=== PATIENT | male | born 1965 | race American Indian/Alaskan Native ===

== ENCOUNTER 2019-06-18 08:10 | Emergency (ER) | payer OTHER ==
[2019-06-18 08:21] VITALS: BP 126/78
--- NOTE | 2019-06-18 09:31 | XRay Report ---
CHEST 1 VIEW, 06/18/2019 9:15 AM CLINICAL INFORMATION/INDICATION: Shortness of breath. Fever. COMPARISON: None FINDINGS: SUPPORT DEVICES: None. HEART: The cardiac silhouette is normal in size. LUNGS/PLEURA: Mildly prominent interstitial markings are noted bilaterally without focal confluent co nsolidation or significant pleural effusion. ADDITIONAL FINDINGS: No additional acute findings. IMPRESSION: 1. Mild prominence of the pulmonary interstitium. This is a nonspecific finding but could suggest mil d pulmonary edema or atypical infectious process. Signer Name: Natividad Hernandez MD Signed: 06/18/2019 9:27 AM Workstation Name: [id number]
--- NOTE | 2019-06-18 09:46 | Emergency Department Report ---
ED General Adult HPI - General Chief complaint: Headache Stated complaint: WEAKNESS/ Time Seen by Provider: 06/18/19 09:44 Source: patient Mode of arrival: Ambulatory Limitations: No Limitations - History of Present Illness Initial comments: This is a 53-year-old male with a past medical history of hypertension controlled with medication who presents the ED complaining of headache poor appetite and generalized fatigue for the past week and a half. Patient states that he had fever last week which resolved last week and has not had a fever this whole week. Patient states that symptoms are not getting better. Patient does deny recent travel or recent sick contact. Patient denies cough, shortness of breath, chest pain or any other symptoms. Patient states he gets intermittent headaches and muscle aches. Patient does note that he wears glasses and thinks his glasses prescriptions were overdue. - Related Data Previous Rx's Medication Instructions Recorded Last Taken Type Azithromycin [Zithromax] 250 mg PO DAILY #6 tablet 06/18/19 Unknown Rx Allergies Allergy/AdvReac Type Severity Reaction Status Date / Time No Known Allergies Allergy Unverified 06/18/19 08:21 ED Review of Systems ROS: Stated complaint: WEAKNESS/ Other details as noted in HPI Comment: All other systems reviewed and negative ED Past Medical Hx - Past Medical History Previous Medical History?: Yes Hx Hypertension: Yes Hx CVA: Yes - Surgical History Past Surgical History?: No - Social History Smoking Status: Never Smoker Substance Use Type: None - Medications Home Medications: Home Medications Medication Instructions Recorded Confirmed Last Taken Type Azithromycin [Zithromax] 250 mg PO DAILY #6 tablet 06/18/19 Unknown Rx ED Physical Exam - General Limitations: No Limitations General appearance: alert, in no apparent distress - Head Head exam: Present: atraumatic, normocephalic - Eye Eye exam: Present: normal appearance - ENT ENT exam: Present: mucous membranes moist - Neck Neck exam: Present: normal inspection - Respiratory Respiratory exam: Present: normal lung sounds bilaterally. Absent: respiratory distress, wheezes, chest wall tenderness - Cardiovascular Cardiovascular Exam: Present: regular rate, normal rhythm. Absent: systolic murmur, diastolic murmur, rubs, gallop - GI/Abdominal GI/Abdominal exam: Present: soft, normal bowel sounds - Rectal Rectal exam: Present: deferred - Extremities Exam Extremities exam: Present: normal inspection - Back Exam Back exam: Present: normal inspection - Neurological Exam Neurological exam: Present: alert, oriented X3 - Psychiatric Psychiatric exam: Present: normal affect, normal mood - Skin Skin exam: Present: warm, dry, intact, normal color. Absent: rash ED Course Vital Signs 06/18/19 08:20 Temperature 99.5 F Pulse Rate 82 Respiratory 18 Rate Blood Pressure 126/78 O2 Sat by Pulse 96 Oximetry ED Medical Decision Making - Radiology Data Radiology results: report reviewed, image reviewed CHEST 1 VIEW, 06/18/2019 9:15 AM CLINICAL INFORMATION/INDICATION: Shortness of breath. Fever. COMPARISON: None FINDINGS: SUPPORT DEVICES: None. HEART: The cardiac silhouette is normal in size. LUNGS/PLEURA: Mildly prominent interstitial markings are noted bilaterally without focal confluent consolidation or significant pleural effusion. ADDITIONAL FINDINGS: No additional acute findings. IMPRESSION: 1. Mild prominence of the pulmonary interstitium. This is a nonspecific finding but could suggest mild pulmonary edema or atypical infectious process. Signer Name: Natividad Hernandez MD Signed: 06/18/2019 9:27 AM Workstation Name: [id number] Transcribed By: EB Dictated By: Natividad Hernandez MD Electronically Authenticated By: Natividad Hernandez MD Signed Date/Time: 06/18/19 0927 - Medical Decision Making 53-year-old male presents with intermittent headache. Patient recently had fever the past week with generalized malaise Patient had a low-grade fever in the ED is a chest x-ray was performed. Chest x-ray shows some atypical findings. I discussed this with the patient. I discussed with patient will go ahead and treat with antibiotics. I discussed with patient to watch for symptoms if he has any worsening symptoms to return to the ED immediately. At this time patient is not experiencing any cough, Discussed continue Tylenol as needed for fever and pain. Discussed increase fluids and diet intake. Discussed rest much needed. Discussed daily vitamin C for immune booster. Discussed follow-up with pCP in 3-5 days. Joe verbally states she understands and will comply the following instructions and follow-up Vital signs stable. Patient is in no acute distress Critical care attestation.: If time is entered above; I have spent that time in minutes in the direct care of this critically ill patient, excluding procedure time. ED Disposition Clinical Impression: Headache Disposition: DC-01 TO HOME OR SELFCARE Is pt being admited?: No Does the pt Need Aspirin: No Condition: Stable Instructions: Upper Respiratory Infection (ED), Acute Headache (ED), Viral Syndrome (ED) Additional Instructions: Make sure to follow up with the primary care physician as discussed. Take all your medications as you've been prescribed. If you have any worsening symptoms or develop new symptoms please return to ED immediately. Prescriptions: Azithromycin [Zithromax] 250 mg PO DAILY #6 tablet Referrals: DIONICIO FISHMAN MD [Primary Care Provider] - 3-5 Days Forms: Accompanied Note, Work/School Release Form(ED) Time of Disposition: 10:41
== END 2019-06-18 11:11 | disposition home or self-care (01) ==
LOC: ED 08:10
DX: R51 Headache (principal); I10 Essential (primary) hypertension; Z86.73 Personal history of transient ischemic attack (TIA), and cerebral infarction without residual deficits; Z79.899 Other long term (current) drug therapy
CPT/HCPCS: 71046; 99283

== ENCOUNTER 2021-01-05 11:49 | Emergency (ER) | payer MEDICARE, OTHER ==
[2021-01-05 12:06] VITALS: BP 149/93
--- NOTE | 2021-01-05 12:44 | Emergency Department Report ---
ED General Adult HPI - General Chief complaint: Pain General Stated complaint: SORENESS LFT AND RIGHT SIDE OF ABD Time Seen by Provider: 01/05/21 12:16 Source: patient Mode of arrival: Ambulatory Limitations: No Limitations - History of Present Illness Initial comments: Patient is a 55-year-old male presents emergency room complaints of soreness to his bilateral abdomen that began a week and a half ago. He denies any fall or injury. He states he is having normal bowel movements. He denies any fever, hematochezia, melena, hematemesis, nausea, vomiting, diarrhea, urinary symptoms, hematuria, urinary retention, difficulty urinating, weight loss. Patient states he had a colonoscopy 5 years ago and reports it was normal. Patient states that he went to his primary care doctor Dr. Fishman on 01/01/2021 and was advised that it was likely a muscle strain and he was given GI follow-up. He states he presents today due to continued soreness. He states that he feels the pain whenever he first starts to stand up. Past medical history of hypertension and CVA. No allergies to medications. - Related Data Previous Rx's Medication Instructions Recorded Last Taken Type Azithromycin [Zithromax] 250 mg PO DAILY #6 tablet 06/18/19 Unknown Rx Allergies Allergy/AdvReac Type Severity Reaction Status Date / Time No Known Allergies Allergy Unverified 06/18/19 08:21 ED Review of Systems ROS: Stated complaint: SORENESS LFT AND RIGHT SIDE OF ABD Other details as noted in HPI Comment: All other systems reviewed and negative ED Past Medical Hx - Past Medical History Previous Medical History?: Yes Hx Hypertension: Yes Hx CVA: Yes - Surgical History Past Surgical History?: No - Social History Smoking Status: Never Smoker Substance Use Type: None - Medications Home Medications: Home Medications Medication Instructions Recorded Confirmed Last Taken Type Azithromycin [Zithromax] 250 mg PO DAILY #6 tablet 06/18/19 Unknown Rx ED Physical Exam - General Limitations: No Limitations General appearance: alert, in no apparent distress - Head Head exam: Present: atraumatic, normocephalic - Eye Eye exam: Present: normal appearance - ENT ENT exam: Present: mucous membranes moist - Neck Neck exam: Present: normal inspection, full ROM. Absent: tenderness, meningismus - Respiratory Respiratory exam: Present: normal lung sounds bilaterally. Absent: respiratory distress, wheezes, rales, rhonchi, stridor, chest wall tenderness, accessory m uscle use, decreased breath sounds, prolonged expiratory - Cardiovascular Cardiovascular Exam: Present: regular rate, normal rhythm, normal heart sounds. Absent: systolic murmur, diastolic murmur, rubs, gallop - GI/Abdominal GI/Abdominal exam: Present: soft, normal bowel sounds. Absent: distended, tenderness, guarding, rebound, rigid, pulsatile mass, hernia - Back Exam Back exam: Present: normal inspection, full ROM. Absent: CVA tenderness (R), CVA tenderness (L), paraspinal tenderness, vertebral tenderness - Neurological Exam Neurological exam: Present: alert, oriented X3 - Psychiatric Psychiatric exam: Present: normal affect, normal mood - Skin Skin exam: Present: warm, dry, intact ED Course Vital Signs 01/05/21 01/05/21 12:02 12:44 Temperature 98 F Pulse Rate 71 Respiratory 16 Rate Blood Pressure 149/93 [Left] O2 Sat by Pulse 97 98 Oximetry ED Medical Decision Making - Lab Data Result diagrams: 01/05/21 12:33 01/05/21 12:33 Lab Results 01/05/21 01/05/21 01/05/21 Range/Units 12:33 12:33 Unknown WBC 4.5 (4.5-11.0) K/mm3 RBC 4.73 (3.65-5.03) M/mm3 Hgb 14.7 (11.8-15.2) gm/dl Hct 42.0 (35.5-45.6) % MCV 89 (84-94) fl MCH 31 (28-32) pg MCHC 35 H (32-34) % RDW 13.1 L (13.2-15.2) % Plt Count 200 (140-440) K/mm3 Lymph % (Auto) 37.4 H (13.4-35.0) % [place] % (Auto) 8.2 H (0.0-7.3) % Eos % (Auto) 4.1 (0.0-4.3) % Baso % (Auto) 2.7 H (0.0-1.8) % Lymph # (Auto) 1.7 (1.2-5.4) K/mm3 [place] # (Auto) 0.4 (0.0-0.8) K/mm3 Eos # (Auto) 0.2 (0.0-0.4) K/mm3 Baso # (Auto) 0.1 (0.0-0.1) K/mm3 Seg Neutrophils % 47.6 (40.0-70.0) % Seg Neutrophils # 2.2 (1.8-7.7) K/mm3 Sodium 141 (137-145) mmol/L Potassium 3.8 (3.6-5.0) mmol/L Chloride 106.3 (98-107) mmol/L Carbon Dioxide 23 (22-30) mmol/L Anion Gap 16 mmol/L BUN 12 (9-20) mg/dL Creatinine 1.0 (0.8-1.3) mg/dL Estimated GFR > 60 ml/min BUN/Creatinine Ratio 12 % Glucose 122 H (75-100) mg/dL Calcium 9.8 (8.4-10.2) mg/dL Total Bilirubin 0.40 (0.1-1.2) mg/dL AST 19 (5-40) units/L ALT 24 (7-56) units/L Alkaline Phosphatase 78 (35-129) units/L Total Protein 7.3 (6.3-8.2) g/dL Albumin 4.4 (3.9-5) g/dL Albumin/Globulin Ratio 1.5 % Lipase 10 L (13-60) units/L Urine Color Yellow (Yellow) Urine Turbidity Clear (Clear) Urine pH 6.0 (5.0-7.0) Ur Specific [place] 1.015 (1.003-1.030) Urine Protein 30 mg/dl (Negative) mg/dL Urine Glucose (UA) Neg (Negative) mg/dL Urine Ketones Neg (Negative) mg/dL Urine Blood Neg (Negative) Urine Nitrite Neg (Negative) Urine Bilirubin Neg (Negative) Urine Urobilinogen < 2.0 (<2.0) mg/dL Ur Leukocyte Esterase Neg (Negative) Urine WBC (Auto) < 1.0 (0.0-6.0) /HPF Urine RBC (Auto) 1.0 (0.0-6.0) /HPF U Epithel Cells (Auto) < 1.0 (0-13.0) /HPF - Medical Decision Making Patient is a 55-year-old male presents emergency room complaints of soreness to his bilateral abdomen that began a week and a half ago. He denies any fall or injury. He states he is having normal bowel movements. He denies any fever, hematochezia, melena, hematemesis, nausea, vomiting, diarrhea, urinary symptoms, hematuria, urinary retention, difficulty urinating, weight loss. Patient states he had a colonoscopy 5 years ago and reports it was normal. Patient states that he went to his primary care doctor Dr. Fishman on 01/01/2021 and was advised that it was likely a muscle strain and he was given GI follow-up. He states he presents today due to continued soreness. He states that he feels the pain whenever he first starts to stand up. Past medical history of hypertension and CVA. No allergies to medications. Vitals are stable. No abdominal tenderness on exam, no guarding, no rebound, no rigidity, no perito margarito signs. Labs are stable. UA is within normal limits. Symptoms could be related to abdominal wall muscle strain as his pain is worse with movement. Do not suspect acute emergent intra-abdominal pathology at this time. Discussed the importance of primary care follow-up for reexamination. Discussed outpatient GI follow-up. Discussed return precautions. Advised patient May alternate Tylenol or ibuprofen as needed for pain. may use ice pack, heating pad, Epsom salt bath. Follow-up with a primary care doctor. Follow-up with a GI doctor. Return to emergency room for any new or worsening symptoms. Critical care attestation.: If time is entered above; I have spent that time in minutes in the direct care of this critically ill patient, excluding procedure time. ED Disposition Clinical Impression: Abdominal discomfort Disposition: 01 HOME / SELF CARE / HOMELESS Is pt being admited?: No Does the pt Need Aspirin: No Condition: Stable Instructions: Abdominal Pain, Adult Additional Instructions: May alternate Tylenol or ibuprofen as needed for pain. may use ice pack, heating pad, Epsom salt bath. Follow-up with a primary care doctor. Follow-up with a GI doctor. Return to emergency room for any new or worsening symptoms. Referrals: [facility] [Provider Group] - 3-5 Days DIONICIO FISHMAN MD [Primary Care Provider] - 3-5 Days Time of Disposition: 13:40 Print Language: [place]
[2021-01-05 12:50] LABS: Bilirubin,Urine NEG (Negative); Blood,Urine NEG (Negative); Color,Urine Yellow (Yellow); Urobilinogen,Urine < 2.0 mg/dL (<2.0); WBC,Urine < 1.0 /HPF (0.0-6.0)
[2021-01-05 13:07] LABS: Basophils # (Auto) 0.1 K/mm3 (0.0-0.1); Basophils % (Auto) 2.7 % (0.0-1.8); Eosinophils # (Auto) 0.2 K/mm3 (0.0-0.4); Eosinophils % (Auto) 4.1 % (0.0-4.3); Hemoglobin 14.7 gm/dl (11.8-15.2); Lymphocytes # (Auto) 1.7 K/mm3 (1.2-5.4); Lymphocytes % (Auto) 37.4 % (13.4-35.0); Mean Corpuscular HGB Conc 35 % (32-34); Mean Corpuscular Volume 89 fl (84-94); Monocytes # (Auto) 0.4 K/mm3 (0.0-0.8); Monocytes % (Auto) 8.2 % (0.0-7.3); Platelet Count 200 K/mm3 (140-440); Red Blood Count 4.73 M/mm3 (3.65-5.03); Red Cell Distribution Width 13.1 % (13.2-15.2)
[2021-01-05 13:27] LABS: Alanine Aminotransferase 24 units/L (7-56); Albumin 4.4 g/dL (3.9-5); BUN/Creatinine Ratio 12; Blood Urea Nitrogen 12 mg/dL (9-20); Calcium 9.8 mg/dL (8.4-10.2); Hemolysis Index 6
== END 2021-01-05 14:16 | disposition home or self-care (01) ==
LOC: ED 11:49
DX: R10.9 Unspecified abdominal pain (principal); I10 Essential (primary) hypertension
CPT/HCPCS: 36415; 80053; 81001; 83690; 85025; 99283

== ENCOUNTER 2021-01-25 10:33 | Emergency (ER) | payer OTHER ==
[2021-01-25] MEDS ORDERED: IBUPROFEN 800 MG TAB PO ONE (11:07)
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
[2021-01-25 12:31] VITALS: BP 149/87
== END 2021-01-25 12:24 | disposition home or self-care (01) ==
LOC: ED 10:33
DX: S13.4XXA Sprain of ligaments of cervical spine, initial encounter (principal); S89.91XA Unspecified injury of right lower leg, initial encounter; I10 Essential (primary) hypertension; V89.2XXA Person injured in unspecified motor-vehicle accident, traffic, initial encounter; Y93.89 Activity, other specified; Y92.488 Other paved roadways as the place of occurrence of the external cause; Y99.8 Other external cause status
CPT/HCPCS: 72040; 99283

== ENCOUNTER 2021-10-06 15:13 | Emergency (ER) | payer OTHER ==
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
[2021-10-06 23:29] VITALS: BP 152/96
== END 2021-10-07 00:01 | disposition home or self-care (01) ==
LOC: ED 15:13
DX: M79.18 Myalgia, other site (principal); I10 Essential (primary) hypertension; Z86.73 Personal history of transient ischemic attack (TIA), and cerebral infarction without residual deficits; Z98.890 Other specified postprocedural states; V89.2XXA Person injured in unspecified motor-vehicle accident, traffic, initial encounter; Y93.89 Activity, other specified; Y92.89 Other specified places as the place of occurrence of the external cause; Y99.8 Other external cause status
CPT/HCPCS: 72040; 72100; 99283